=== PATIENT | male | born 1995 | race Caucasian/White ===

== ENCOUNTER 2019-06-13 13:18 | Emergency (ER) | payer SELFPAY ==
[2019-06-13 13:32] VITALS: PULSE 92
--- NOTE | 2019-06-13 13:38 | EDM.PDOC ---
ED HPI GENERAL MEDICAL PROBLEM - General Chief Complaint: Skin Complaint Stated Complaint: ABSCESS ON NECK Time Seen by Provider: 06/13/19 13:28 - History of Present Illness INITIAL COMMENTS - FREE TEXT/NARRATIVE: 23-year-old male presents the emergency room with a large developing mass under his right jaw. This is been getting worse over the last 9 days patient got out of long-term 4 days ago. This was not evaluated while he was incarcerated. Patient has not had any fevers or chills but is developing significant discomfort and pain along this area. Seems to be getting worse over time and larger. She has had multiple lesions removed in the past is currently being treated for pilonidal abscess and has had multiple cyst and abscess drained in the past. Right Neck Pain Score (Numeric/FACES): 8 - Related Data Allergies Allergy/AdvReac Type Severity Reaction Status Date / Time niacin Allergy Cannot Verified 06/13/19 14:33 Remember Penicillins Allergy Stomach Verified 06/13/19 14:33 Upset Home Meds: Home Meds Acetaminophen/HYDROcodone [[place] 325-5 MG] 2 tab PO Q6H #14 tablet 06/13/19 [Rx] Acetaminophen/HYDROcodone [[place] 325-5 MG] 2 tab PO Q6H #2 tablet 06/13/19 [Rx] Clindamycin HCl 300 mg PO Q8H #1 capsule 06/13/19 [Rx] Clindamycin HCl 300 mg PO Q8H #21 capsule 06/13/19 [Rx] Past Medical History - Past Health History Medical/Surgical History: Denies Medical/Surgical History Social & Family History - Living Situation & Occupation Living situation: Reports: Single, with Family Occupation: Employed ED ROS GENERAL - Review of Systems Review Of Systems: See Below Constitutional: Reports: No Symptoms. Denies: Fever, Chills HEENT: Reports: Ear Pain (Only in the right side) Respiratory: Reports: No Symptoms Cardiovascular: Reports: No Symptoms GI/Abdominal: Reports: No Symptoms ED EXAM, SKIN/RASH Exam: See Below Exam Limited By: No Limitations General Appearance: Alert, No Apparent Distress Neck: Other (Large what looks like a developing abscess underneath the angle of the right mandible. This exquisitely tender major neck vessels immediately below this. CT will be obtained) Respiratory/Chest: No Respiratory Distress, Lungs Clear, Normal Breath Sounds Cardiovascular: Regular Rate, Rhythm, No Edema, No Murmur Course - Vital Signs Last Recorded V/S: Last Vital Signs Temp 36.8 C 06/13/19 13:29 Pulse 92 06/13/19 13:29 Resp 20 06/13/19 13:29 BP 167/108 H 06/13/19 13:29 Pulse Ox 100 06/13/19 13:29 - Orders/Labs/Meds Orders: Active Orders 24 hr Category Date Time Status Soft Tissue Neck w Cont [CT] Stat Exams 06/13/19 13:38 Taken CULTURE ANAEROBIC + SMEAR [RM] Stat Lab 06/13/19 16:46 Ordered CULTURE WOUND [RM] Stat Lab 06/13/19 16:04 Ordered Meds: Medications Discontinued Medications Generic Name Dose Route Start Last Admin Trade Name Freq PRN Reason Stop Dose Admin Clindamycin Phosphate Confirm 06/13/19 14:19 06/13/19 14:28 Cleocin Administered 06/13/19 14:20 Not Given Dose 900 mg .ROUTE .STK-MED ONE Fentanyl 50 mcg 06/13/19 13:47 06/13/19 14:08 Sublimaze IVPUSH 06/13/19 13:48 Not Given ONETIME ONE Sodium Chloride 1,000 mls @ 999 mls/hr 06/13/19 13:40 06/13/19 13:50 Normal Saline IV 06/13/19 14:40 999 mls/hr ONETIME ONE Administration Clindamycin Phosphate 600 mg/ 104 mls @ 200 mls/hr 06/13/19 13:41 06/13/19 14 :27 Sodium Chloride IV 06/13/19 14:12 Not Given ONETIME ONE Clindamycin Phosphate 600 mg/ 33.3333 mls @ 100 mls/hr 06/13/19 14:21 14:35 Premix IV 06/13/19 14:40 100 mls/hr ONETIME ONE Administration Iopamidol 80 ml 06/13/19 14:00 06/13/19 14:21 Isovue-300 (61%) IVPUSH 06/13/19 14:01 80 ml ONETIME ONE Administration Lidocaine HCl 10 ml 06/13/19 16:01 06/13/19 16:21 Xylocaine 1% INJECT 06/13/19 16:02 10 ml ONETIME ONE Administration Sodium Chloride 10 ml 06/13/19 14:00 06/13/19 14:22 Saline Flush FLUSH 06/13/19 14:01 10 ml ONETIME ONE Administration - Re-Assessments/Exams Free Text/Narrative Re-Assessment/Exam: 06/13/19 15:04 Reviewed which shows a 2.4 cm peripheral enhancing fluid collection most likely soft tissue abscess that might be associated with a second brachial cleft cyst. Case discussed with Dr. Damon, our on-call surgeon who will come in and take a look at this. 06/13/19 16:47 Dr. Damon did evaluate the patient and performed incision and drainage. At this point the patient be discharged home we will arrange outpatient dressing changes as the mother does not feel as though she can do this the patient will take clindamycin 300 mg 3 times a day. Departure - Departure Time of Disposition: 16:47 Disposition: Home, Self-Care 01 Clinical Impression: Second branchial cleft cyst, Abscess of neck - Discharge Information Prescriptions: Acetaminophen/HYDROcodone [[place] 325-5 MG] 2 tab PO Q6H #2 tablet Acetaminophen/HYDROcodone [[place] 325-5 MG] 2 tab PO Q6H #14 tablet Clindamycin HCl 300 mg PO Q8H #1 capsule Clindamycin HCl 300 mg PO Q8H #21 capsule Referrals: PCP,None [Primary Care Provider] - Ila Damon MD [Physician] - Forms: ED Department Discharge Additional Instructions: Return to the emergency room with any questions problems or worsening symptoms. Return to the emergency room daily for dressing changes. Take the antibiotics 1 dose every 8 hours until all gone you will be given a prescription to get filled first thing in the morning. Use the medication as needed 1 or 2 tablets every 6 hours as needed for pain. Allow 12 hours after using this medication before driving or returning to work. Follow-up with Dr. Damon on Friday Sepsis Event Note - Focused Exam Vital Signs: Vital Signs Temp Pulse Resp BP Pulse Ox 06/13/19 13:29 36.8 C 92 20 167/108 H 100 Date Exam was Performed: 06/13/19 Time Exam was Performed: 16:47 - My Orders Last 24 Hours: My Active Orders 06/13/19 13:38 Soft Tissue Neck w Cont [CT] Stat 06/13/19 16:04 CULTURE WOUND [RM] Stat 06/13/19 16:46 CULTURE ANAEROBIC + SMEAR [RM] Stat - Assessment/Plan Last 24 Hours: My Active Orders 06/13/19 13:38 Soft Tissue Neck w Cont [CT] Stat 06/13/19 16:04 CULTURE WOUND [RM] Stat 06/13/19 16:46 CULTURE ANAEROBIC + SMEAR [RM] Stat
[2019-06-13] MEDS ORDERED: Sodium Chloride 0.9% 1,000 ML IV ONE (13:40)
[2019-06-13] MEDS ORDERED: Clindamycin Phosphate 600 MG in Sodium Chloride 0.9% 100 ML IV ONE (13:41)
[2019-06-13] MEDS ORDERED: fentaNYL 100 MCG/2 ML SDV IVPUSH ONE (13:47)
[2019-06-13] MEDS ORDERED: Iopamidol 612 MG/ML 100 ML Bottle IVPUSH ONE (14:00)
[2019-06-13] MEDS ORDERED: Sodium Chloride 0.9% 10 ML Syringe FLUSH ONE (14:00)
[2019-06-13] MEDS ORDERED: Clindamycin Phosphate 900 MG/6 ML SDV ONE (14:19)
[2019-06-13] MEDS ORDERED: Clindamycin Phosphate in D5W 600 MG in Premix Bag 1 BAG IV ONE ×2 (14:21)
[2019-06-13] MEDS ORDERED: Lidocaine 1% 10 ML MDV INJECT ONE (16:01)
[2019-06-13] MEDS ORDERED: Acetaminophen/HYDROcodone 325-5 MG Tab PO ONE (16:53)
[2019-06-13] MEDS ORDERED: Clindamycin HCl 150 MG Cap PO ONE (17:26)
--- NOTE | 2019-06-13 17:36 | PCM.CONS ---
H&P History of Present Illness - General Date of Service: 06/13/19 Source of Information: Patient, Family History Limitations: Reports: No Limitations - History of Present Illness Initial Comments - Free Text/Narative: Patient has left upper neck lump for > 1yr, it has grown in size over this period. In the past 2 weeks skin over it was becoming red and the lump was becoming tender and hard. Pain became unbearable today and the patient came to the ED. [place] prior history of pilonidal cyst and ampit cysts but no other issues. Niece has lymphoma. Pt has history of drug use, last used meth last week. No trouble breathing or swallowing. Onset of Symptoms: Reports: Gradual Duration of Symptoms: Reports: Day(s): (14) Location: Reports: Neck Quality: Reports: Sharp Severity: Severe Right Neck Pain Score (Numeric/FACES): 8 - Related Data Allergies/Adverse Reactions: Allergies Allergy/AdvReac Type Severity Reaction Status Date / Time niacin Allergy Cannot Verified 06/13/19 14:33 Remember Penicillins Allergy Stomach Verified 06/13/19 14:33 Upset Home Medications: Home Meds Acetaminophen/HYDROcodone [[place] 325-5 MG] 2 tab PO Q6H #14 tablet 06/13/19 [Rx] Acetaminophen/HYDROcodone [[place] 325-5 MG] 2 tab PO Q6H #2 tablet 06/13/19 [Rx] Clindamycin HCl 300 mg PO Q8H #1 capsule 06/13/19 [Rx] Clindamycin HCl 300 mg PO Q8H #21 capsule 06/13/19 [Rx] Past Medical History - Past Health History Medical/Surgical History: Denies Medical/Surgical History Dermatologic History: Reports: Other (See Below) Other Dermatologic History: cysts and pilonidol cysts that return Social & Family History - Tobacco Use Smoking Status *Q: Current Every Day Smoker Years of Tobacco use: 12 Packs/Tins Daily: 1 - Caffeine Use Caffeine Use: Reports: Coffee - Recreational Drug Use Recreational Drug Use: Yes Recreational Drug Type: Reports: 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 it since out of shelter 4 days ago when he got out - Living Situation & Occupation Living situation: Reports: Single, with Family Occupation: Employed H&P Review of Systems - Review of Systems: Review Of Systems: See Below General: Reports: No Symptoms HEENT: Reports: Other (neck pain) Pulmonary: Reports: No Symptoms Cardiovascular: Reports: No Symptoms Gastrointestinal: Reports: No Symptoms Genitourinary: Reports: No Symptoms Musculoskeletal: Reports: No Symptoms Skin: Reports: No Symptoms Psychiatric: Reports: No Symptoms Exam - Exam Exam: See Below - Vital Signs Vital Signs: Last Vital Signs Temp 98.3 F 06/13/19 13:29 Pulse 92 06/13/19 13:29 Resp 20 06/13/19 13:29 BP 167/108 H 06/13/19 13:29 Pulse Ox 100 06/13/19 13:29 Weight: 117.027 kg - Exam General: Alert, Oriented, Cooperative, Lethargic Neck: Other (there is a 7 cm x 5 cm erythematous and phlegmonous lump in the left lateral neck with fluctuance.) Lungs: Clear to Auscultation, Normal Respiratory Effort Cardiovascular: Regular Rate, Regular Rhythm, Normal S1, Normal S2 GI/Abdominal Exam: Normal Bowel Sounds, Soft, Non-Tender, No Organomegaly Sepsis Event Note - Evaluation Sepsis Screening Result: No Definite Risk - Focused Exam Vital Signs: Vital Signs Temp Pulse Resp BP Pulse Ox 06/13/19 13:29 98.3 F 92 20 167/108 H 100 Date Exam was Performed: 06/13/19 Time Exam was Performed: 17:31 Consult PN Assessment/Plan Procedures: Procedures CULTURE OTHR SPECIMN AEROBIC (04/01/17) EMERGENCY DEPT VISIT (10/08/15) Problem List Initiated/Reviewed/Updated: No Plan: 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 I&D performed at bedside , no complications. Wound packed. Patient will return to the ED daily for wound packing and come to clinic to see me on 06/15. He will need a referral to ENT for resection of this cyst in the future unless it resolves completely. I will place the referral when he returns to clinic.
--- NOTE | 2019-06-13 17:48 | PCM.PRNOTE ---
- Free Text/Narrative Note: Procedure: Incision and drainage of the right neck abscess Indication: Right neck abscess and induration Details: the patient was placed flat with head turned to the left. The right neck was prepped with chlorhexidine and draped in the usual fashion. Then 1% lidocaine was injected. Number 11 scalpel was used to make an incision over the most fluctuant area with immediate expression of purulent and white chunks resembling sebum. Swabs were taken for cultures. Loculations were broken with Qtip and the wound rinsed with sterile saline. Wound was packed with 1/2 inch iodoform gauze. Gauze was placed over the top. Plan is for patient to come back in clinic for dressing changes and will see me in clinic in 3 days.
[2019-06-13 18:47] VITALS: BP 140/90
--- NOTE | 2019-06-14 07:40 | CT ---
CT neck Technique: Multiple axial sections through the neck were obtained. Intravenous contrast was utilized. Reconstructed coronal and sagittal images were obtained. Findings: Low density area noted external to the sternocleidomastoid muscle and platysma muscle within the right side of the neck measuring 2.2 cm. This finding is most likely due to abscess. Surrounding cellulitis is also believed to be present. Mild adenopathy is seen within the neck most likely reactive from the right-sided neck process. Parotid is and submandibular salivary glands are within normal limits. No acute paranasal sinus findings are seen. Prevertebral soft tissues are normal. Epiglottis is normal. Bone window settings were reviewed which shows no acute osseous finding. Impression: 1. Low density area as noted above suspicious for abscess. Surrounding cellulitis is also noted. Findings could represent persistent branchial cleft cyst which is infected. 2. Mild adenopathy within the neck most likely reactive from the right neck process. Diagnostic code #5 This report was dictated in MDT I agree with preliminary report from [facility], finalized on 06/13/19, 3:35 PM Central Time
== END 2019-06-13 17:40 | disposition home or self-care (01) ==
LOC: JD.ED 13:18
DX: L02.11 Cutaneous abscess of neck (principal); Q18.0 Sinus, fistula and cyst of branchial cleft; Z88.0 Allergy status to penicillin
CPT/HCPCS: 70491; 87075; 87205; 96361; 96365; 99284; A9270; J2001; J3490; J7030; Q9967; 87076; 87181

== ENCOUNTER 2019-08-20 17:34 | Emergency (ER) | payer MEDICAID ==
[2019-08-20 18:07] VITALS: BP 176/113
[2019-08-20] MEDS ORDERED: Azithromycin 250 MG Tab PO ONE (18:45)
[2019-08-20] MEDS ORDERED: cefTRIAXone 250 MG, Lidocaine 1% 0.5 ML IM ONE ×2 (18:45)
--- NOTE | 2019-08-20 18:50 | EDM.PDOC ---
ED HPI GENERAL MEDICAL PROBLEM - General Chief Complaint: Genitourinary Problem Stated Complaint: FEVER,PAINFUL URINATION,BLOOD IN URINE Time Seen by Provider: 08/20/19 18:16 Source of Information: Reports: Patient, RN Notes Reviewed History Limitations: Reports: No Limitations - History of Present Illness INITIAL COMMENTS - FREE TEXT/NARRATIVE: Patient is a 24-year-old male who presents to the ED for evaluation of a genitourinary issue. Patient states for the last week, he has noticed some blood in his urine and thick yellow discharge coming from the tip of his penis. The patient does state that it ardon when he pees, and states this feels similar to one time when he had gonorrhea as a teenager, and thinks that this might be what it is. He notes that around 1-1/2 weeks ago, he did have unprotected sex with a female partner. Patient states he has had a fever at home, patient is afebrile at time of triage, and otherwise vitally stable. Patient is not complaining of any abdominal pain, suprapubic pain, nausea/ vomiting/diarrhea, chest pain/shortness of breath/cough. He does note that his testicles seem mildly swollen, but there is no redness or swelling of the penis itself. Penis Pain Score (Numeric/FACES): 5 - Related Data Allergies Allergy/AdvReac Type Severity Reaction Status Date / Time niacin Allergy Cannot Verified 08/20/19 18:07 Remember Penicillins Allergy Stomach Verified 08/20/19 18:07 Upset Home Meds: Home Meds Acetaminophen/HYDROcodone [[place] 325-5 MG] 2 tab PO Q6H #14 tablet 06/13/19 [Rx] Acetaminophen/HYDROcodone [[place] 325-5 MG] 2 tab PO Q6H #2 tablet 06/13/19 [Rx] Clindamycin HCl 300 mg PO Q8H #1 capsule 06/13/19 [Rx] Clindamycin HCl 300 mg PO Q8H #21 capsule 06/13/19 [Rx] Past Medical History - Past Health History Medical/Surgical History: Denies Medical/Surgical History Dermatologic History: Reports: Other (See Below) Other Dermatologic History: cysts and pilonidol cysts that return Social & Family History - Tobacco Use Smoking Status *Q: Current Every Day Smoker Years of Tobacco use: 15 Packs/Tins Daily: 1 - Caffeine Use Caffeine Use: Reports: None - Recreational Drug Use Recreational Drug Use: Yes Recreational Drug Type: Reports: Methamphetamine - Living Situation & Occupation Living situation: Reports: Single, with Family Occupation: Employed ED ROS GENERAL - Review of Systems Review Of Systems: Comprehensive ROS is negative, except as noted in HPI. ED EXAM, RENAL/ - Physical Exam Exam: See Below Exam Limited By: No Limitations General Appearance: Alert, WD/WN, No Apparent Distress Eye Exam: Bilateral Eye: EOMI, Normal Inspection, PERRL Ears: Normal External Exam Nose: Normal Inspection Throat/Mouth: Normal Inspection Head: Atraumatic, Normocephalic Neck: Normal Inspection Respiratory/Chest: No Respiratory Distress, Lungs Clear, Normal Breath Sounds, No Accessory Muscle Use, Chest Non-Tender Cardiovascular: Normal Peripheral Pulses, Regular Rate, Rhythm, No Murmur GI/Abdominal: Normal Bowel Sounds, Soft, Non-Tender, No Distention, No Mass (Male) Exam: Deferred, Scrotal Swelling (pt reports mild swelling). No: Penile Lesions (pt denies), Scrotum Tenderness (L) (pt denies), Scrotum Tenderness (R) (pt denies) Extremities: Normal Inspection, Normal Capillary Refill Neurological: Alert, Oriented, Normal Cognition, No Motor/Sensory Deficits Psychiatric: Normal Affect, Normal Mood Skin Exam: Warm, Dry, Intact, Normal Color, No Rash Course - Vital Signs Last Recorded V/S: Last Vital Signs Temp 98.7 F 08/20/19 18:03 Pulse 109 H 08/20/19 18:03 Resp 18 08/20/19 18:03 BP 176/113 H 08/20/19 18:03 Pulse Ox 100 08/20/19 18:03 - Orders/Labs/Meds Orders: Active Orders 24 hr Category Date Time Status CULTURE URINE [RM] Routine Lab 08/20/19 19:28 Ordered GC/CHLAMYDIA BY PCR [MOLEC] Stat Lab 08/20/19 18:20 Received Labs: Laboratory Tests 08/20/19 Range/Units 18:20 Urine Color Yellow (Yellow) Urine Appearance Cloudy H (Clear) Urine pH 7.5 (5.0-8.0) Ur Specific [place] 1.025 (1.005-1.030) Urine Protein 1+ H (Negative) Urine Glucose (UA) Negative (Negative) Urine Ketones Negative (Negative) Urine Occult Blood 3+ H (Negative) Urine Nitrite Negative (Negative) Urine Bilirubin Negative (Negative) Urine Urobilinogen 0.2 (0.2-1.0) Ur Leukocyte Esterase Trace H (Negative) Urine RBC 75-100 H (0-5) /hpf Urine WBC 10-20 H (0-5) /hpf Ur Squamous Epith Cells 0-5 (0-5) /hpf Urine Bacteria Few (FEW) /hpf Urine Mucus Not seen (FEW) /hpf Meds: Medications Discontinued Medications Generic Name Dose Route Start Last Admin Trade Name Kisha PRN Reason Stop Dose Admin Azithromycin 1,000 mg 08/20/19 18:45 08/20/19 19:19 Zithromax PO 08/20/19 18:46 1,000 mg ONETIME ONE Administration Ceftriaxone Sodium 250 mg/ 0 mg 08/20/19 18:45 08/20/19 19:20 Lidocaine HCl 0.5 ml IM 08/20/19 18:46 0.5 syringe ONETIME ONE Administration - Re-Assessments/Exams Free Text/Narrative Re-Assessment/Exam: 08/20/19 19:30 Patient presents to the ED for evaluation of his urinary tract infection/ suspected gonorrhea infection. Clinical course and history is suggestive of gonorrhea chlamydia infection. Have prophylactically ordered Rocephin and azithromycin for treatment, patient's urine will be sent for culture to rule out an overlying UTI in nature. Patient will be called and made notified if he should need antibiotics for this. Departure - Departure Time of Disposition: 19:31 Disposition: Home, Self-Care 01 Condition: Good Clinical Impression: Carrier or suspected carrier of gonorrhea - Discharge Information *PRESCRIPTION DRUG MONITORING PROGRAM REVIEWED*: No *COPY OF PRESCRIPTION DRUG MONITORING REPORT IN PATIENT MAGALY: No Instructions: Sexually Transmitted Disease, [id number] Referrals: PCP,None [Primary Care Provider] - Forms: ED Department Discharge Additional Instructions: You were evaluated in the ER today regarding your urinary/penile discharge. There is high suspicion for gonorrhea/chlamydia infection at this time. You were given a one-time treatment in the ER for this, you should not need further treatment at this time. Urinalysis was suspicious for an overlying urinary tract infection, however with the amount of white blood cells in the urine, it could be due to just the discharge from the suspected gonorrhea/chlamydia infection. Your urine will be sent for culture to rule out overlying infection, you will be called made notified if you should need another course of antibiotics for an overlying UTI. This should happen within the next 24 to 48 hours. The gonorrhea/chlamydia test is still pending at this time, you will be called and made notified of the results sometime tonight yet. Please return to the ER at any time if symptoms change or worsen. Sepsis Event Note - Evaluation Sepsis Screening Result: No Definite Risk - Focused Exam Vital Signs: Vital Signs Temp Pulse Resp BP Pulse Ox 08/20/19 18:03 98.7 F 109 H 18 176/113 H 100 Date Exam was Performed: 08/20/19 Time Exam was Performed: 19:28 - My Orders Last 24 Hours: My Active Orders 08/20/19 18:20 GC/CHLAMYDIA BY PCR [MOLEC] Stat 08/20/19 19:28 CULTURE URINE [RM] Routine - Assessment/Plan Last 24 Hours: My Active Orders 08/20/19 18:20 GC/CHLAMYDIA BY PCR [MOLEC] Stat 08/20/19 19:28 CULTURE URINE [RM] Routine
[2019-08-20 19:49] VITALS: PULSE 102
[2019-08-20 19:56] LABS: C. TRACHOMATIS BY PCR NOT DETECTED; N. GONORRHOEAE BY PCR DETECTED
== END 2019-08-20 19:40 | disposition home or self-care (01) ==
LOC: JD.ED 17:34
DX: Z22.4 Carrier of infections with a predominantly sexual mode of transmission (principal); F17.210 Nicotine dependence, cigarettes, uncomplicated; Z91.09 Other allergy status, other than to drugs and biological substances; Z88.0 Allergy status to penicillin
CPT/HCPCS: 81001; 87086; 87491; 87591; 96372; 99283; A9270; J0696; J2001